=== PATIENT | female | born 1990 | race Caucasian/White ===

== ENCOUNTER 2019-06-21 22:17 | Emergency (ER) | payer MEDICAID ==
[~2019-06-21] VITALS: Ht 162.6 cm; Wt 179.0 kg
[2019-06-22 01:37] LABS: BASOPHILS % (AUTO) 0.4 % (0-1); EOSINOPHILS # (AUTO) 0.1 X10'3 (0-0.9); EOSINOPHILS % (AUTO) 0.7 % (0-6); HEMATOCRIT 33.2 % (35.0-45.0); HEMOGLOBIN 11.3 g/dl (12.0-16.0); LYMPHOCYTES # (AUTO) 2.9 X10'3 (1.1-4.8); MEAN CORPUSCULAR HEMOGLOBIN 28.1 PG (27.0-31.0); MEAN CORPUSCULAR HGB CONC 34.2 g/dL (33.0-36.5); MEAN CORPUSCULAR VOLUME 82.2 FL (78-98); MEAN PLATELET VOLUME 8.3 FL (7.4-10.4); MONOCYTES # (AUTO) 0.4 X10'3 (0-0.9); MONOCYTES % (AUTO) 4.8 % (2-12); NEUTROPHILS # (AUTO) 4.1 X10'3 (1.8-7.7); NEUTROPHILS % (AUTO) 55.1 % (42-75); PLATELET COUNT 335 X10'3 (140-440); RED BLOOD COUNT 4.04 X10'6 (4.20-5.60); RED CELL DISTRIBUTION WIDTH 14.5 % (11.5-14.5); WHITE BLOOD COUNT 7.4 X10'3 (4.5-11.0)
[2019-06-22 02:03] LABS: ALANINE AMINOTRANSFERASE 50 U/L (12-78); ALBUMIN 3.3 G/DL (3.4-5.0); ALBUMIN/GLOBULIN RATIO 0.8 (1.1-1.5); ALKALINE PHOSPHATASE 85 IU/L (46-116); ANION GAP 7 (8-16); ASPARTATE AMINO TRANSFERASE 35 U/L (10-37); BILIRUBIN,TOTAL 0.1 MG/DL (0.1-1.0); BLOOD UREA NITROGEN 15 MG/DL (7-18); BUN/CREATININE RATIO 18.5 (6.6-38.0); CHLORIDE 107 MMOL/L (99-107); CREATININE 0.81 MG/DL (0.40-0.90); GLUCOSE 122 MG/DL (70-104); MAGNESIUM 1.9 MG/DL (1.5-2.4); POTASSIUM 3.9 MMOL/L (3.5-5.1); SODIUM 141 MMOL/L (135-145); TOTAL PROTEIN 7.4 G/DL (6.4-8.2); eGFR 84 ML/MIN
[2019-06-22 02:14] VITALS: BP 141/86
== END 2019-06-22 02:16 | disposition home or self-care (01) ==
LOC: ER 22:20 → EDBD 22:20 → ER 06-22 02:16
DX: R20.2 Paresthesia of skin (principal); R60.9 Edema, unspecified; E11.9 Type 2 diabetes mellitus without complications; G89.29 Other chronic pain
CPT/HCPCS: 36415; 80053; 83735; 85025; 99283

== ENCOUNTER 2019-10-17 07:30 | Day surgery (SDC) | payer MEDICAID ==
[~2019-10-17] VITALS: Ht 162.6 cm; Wt 181.8 kg
[2019-10-17 07:42] VITALS: BP 165/108
[2019-10-17] MEDS ORDERED: DICL100G15 TOP (07:46)
[2019-10-17] MEDS ORDERED: FURO-150 PO (07:46)
[2019-10-17] MEDS ORDERED: BUSP5TAB3 PO (07:47)
[2019-10-17] MEDS ORDERED: ALPR-623 PO (07:47)
[2019-10-17] MEDS ORDERED: METF-436 PO (07:48)
[2019-10-17] MEDS ORDERED: LISI-604 PO (07:48)
[2019-10-17] MEDS ORDERED: ESCI20TA PO (07:49)
[2019-10-17] MEDS ORDERED: fentaNYL/PF 50MCG/1 ML 2ML syringe ONE (07:52)
[2019-10-17] MEDS ORDERED: MIDAZolam 5mg/5ml vial ONE (07:52)
[2019-10-17] MEDS ORDERED: LIDOcaine Viscous 15ml cup ONE (07:52)
[2019-10-17 09:38] VITALS: BP 151/101
[2019-10-17 09:48] VITALS: BP 123/76
[2019-10-17 09:58] VITALS: BP 128/82
[2019-10-17 10:08] VITALS: BP 140/88
== END 2019-10-17 10:30 | disposition home or self-care (01) ==
LOC: GI LAB 07:30
PROVIDERS: ATTEND Internal Medicine Gastroenterology
DX: Z01.818 Encounter for other preprocedural examination (principal); K21.0 Gastro-esophageal reflux disease with esophagitis; K29.50 Unspecified chronic gastritis without bleeding; E66.01 Morbid (severe) obesity due to excess calories; Z68.44 Body mass index [BMI] 60.0-69.9, adult
CPT/HCPCS: 43239; 99152; J2250; J3010; J7040; 99153; A4620

== ENCOUNTER 2019-12-02 11:02 | Inpatient (IN) | payer MEDICAID ==
[~2019-12-02] VITALS: Ht 162.6 cm; Wt 189.9 kg
[~2019-12-02 11:02] MED LIST: ALPR-623 PO; BUSP5TAB3 PO; DICL100G15 TOP; ESCI20TA PO; FURO-150 PO; LISI-604 PO; METF-436 PO
[2019-12-02 12:13] LABS: BASOPHILS % (AUTO) 0.2 % (0-1); EOSINOPHILS % (AUTO) 0.1 % (0-6); HEMOGLOBIN 12.1 g/dl (12.0-16.0); LYMPHOCYTES # (AUTO) 1.4 X10'3 (1.1-4.8); LYMPHOCYTES % (AUTO) 12.3 % (21-51); MEAN CORPUSCULAR HGB CONC 32.7 g/dL (33.0-36.5); MEAN CORPUSCULAR VOLUME 82.8 FL (78-98); MEAN PLATELET VOLUME 8.3 FL (7.4-10.4); MONOCYTES # (AUTO) 0.7 X10'3 (0-0.9); MONOCYTES % (AUTO) 5.8 % (2-12); NEUTROPHILS # (AUTO) 9.5 X10'3 (1.8-7.7); NEUTROPHILS % (AUTO) 81.6 % (42-75); PLATELET COUNT 415 X10'3 (140-440); RED BLOOD COUNT 4.47 X10'6 (4.20-5.60); RED CELL DISTRIBUTION WIDTH 15.2 % (11.5-14.5); WHITE BLOOD COUNT 11.6 X10'3 (4.5-11.0)
[2019-12-02 12:34] LABS: ALANINE AMINOTRANSFERASE 74 U/L (12-78); ALBUMIN 3.4 G/DL (3.4-5.0); ALBUMIN/GLOBULIN RATIO 0.8 (1.1-1.5); ALKALINE PHOSPHATASE 72 IU/L (46-116); ANION GAP 12 (8-16); ASPARTATE AMINO TRANSFERASE 62 U/L (10-37); BILIRUBIN,TOTAL 0.2 MG/DL (0.1-1.0); BLOOD UREA NITROGEN 15 MG/DL (7-18); BUN/CREATININE RATIO 19.7 (6.6-38.0); CALCIUM 8.6 MG/DL (8.5-10.1); CHLORIDE 104 MMOL/L (99-107); CREATININE 0.76 MG/DL (0.40-0.90); GLUCOSE 156 MG/DL (70-104); POTASSIUM 4.4 MMOL/L (3.5-5.1); SODIUM 139 MMOL/L (135-145); TOTAL CARBON DIOXIDE 23.5 MMOL/L (24-32); TOTAL PROTEIN 7.5 G/DL (6.4-8.2); eGFR 90 ML/MIN
[2019-12-02] MEDS ORDERED: morphine 4 MG/ML inj SYRINge IV STA (12:40)
--- NOTE | 2019-12-02 12:41 | NUR ---
Received a verbal order from Dr. Payne for morphine 4mg iv .Will inform primary RN.
[2019-12-02] MEDS ORDERED: iohexol 350MG/ML 100ml bottle IV ONE (12:43)
[2019-12-02 12:45] LABS: LIPASE 8124 U/L (73-393)
--- NOTE | 2019-12-02 13:09 | NUR ---
pt returns from ct
[2019-12-02] MEDS ORDERED: mag hydrox/Alum hydrox/simeth 30ml oral suspension PO PRN (14:15)
[2019-12-02] MEDS ORDERED: morphine 2 MG/ML inj. syringe IV PRN (14:15)
[2019-12-02] MEDS ORDERED: acetaminophen 325mg tablet PO PRN (14:15)
[2019-12-02] MEDS ORDERED: magnesium hydroxide 30ml (MOM) UD suspension PO PRN (14:15)
[2019-12-02 14:35] LABS: CHOL/HDL RATIO 3.4 (0.00-4.99); CHOLESTEROL 159 MG/DL (0-200); HDL CHOLESTEROL 47 MG/DL (35-60); LDL CHOLESTEROL 91 MG/DL (50-100); TRIGLYCERIDES 103 MG/DL (20-135)
--- NOTE | 2019-12-02 14:45 | NUR ---
Patient in room PCU 3016. I have received report from Faye GIORDANO and had the opportunity to ask questions and assume patient care.
--- NOTE | 2019-12-02 15:10 | NUR ---
Patient arrived to unit, oriented to room, tele started, NS@200, mrsa complete, 2 RN skin check complete.
[2019-12-02 15:15] VITALS: BP 144/80
[2019-12-02] MEDS: normal saline 1000ml 1,000 ML IV SCH ×2 (15:43→19:15)
[2019-12-02] MEDS: morphine 2 MG/ML inj. syringe IV PRN ×2 (15:50→20:20)
--- NOTE | 2019-12-02 16:21 | NUR ---
Paged Dr. Gunter. Angela Montes. [phone]. Patient has history of diabetes per ED report. Patient is not on [facility]. Would you like her on [facility]? Joe [phone]
[2019-12-02 18:00] VITALS: BP 142/63
--- NOTE | 2019-12-02 18:22 | NUR ---
Problems reprioritized. Patient report given, questions answered & plan of care reviewed with Clarissa GIORDANO.
--- NOTE | 2019-12-02 18:26 | NUR ---
Patient in room PCU 3016. I have received report from Joe GIORDANO and had the opportunity to ask questions and assume patient care.
[2019-12-02 22:00] VITALS: BP 153/85
[2019-12-02] MEDS: busPIRone 5mg tablet PO SCH (22:21)
[2019-12-02] MEDS: heparin, porcine 5000 units/ml vial SQ SCH (22:22)
[2019-12-03] VITALS (7 sets, daily range): BP systolic 126–143; BP diastolic 68–94
[2019-12-03] MEDS: morphine 2 MG/ML inj. syringe IV PRN ×2 (00:37→07:08)
[2019-12-03] MEDS ORDERED: HYDROmorphone inj. 0.5 MG/0.5 ML DISP.SYRIN IV ONE (02:55)
[2019-12-03] MEDS: normal saline 1000ml 1,000 ML IV SCH ×6 (03:05→23:50)
[2019-12-03 06:04] LABS: BASOPHILS % (AUTO) 0.2 % (0-1); EOSINOPHILS # (AUTO) 0.1 X10'3 (0-0.9); EOSINOPHILS % (AUTO) 0.7 % (0-6); HEMATOCRIT 32.6 % (35.0-45.0); HEMOGLOBIN 10.8 g/dl (12.0-16.0); LYMPHOCYTES % (AUTO) 19.4 % (21-51); MEAN CORPUSCULAR HEMOGLOBIN 27.7 PG (27.0-31.0); MONOCYTES # (AUTO) 0.5 X10'3 (0-0.9); MONOCYTES % (AUTO) 5.1 % (2-12); NEUTROPHILS # (AUTO) 7.5 X10'3 (1.8-7.7); NEUTROPHILS % (AUTO) 74.6 % (42-75); PLATELET COUNT 350 X10'3 (140-440); RED BLOOD COUNT 3.88 X10'6 (4.20-5.60); RED CELL DISTRIBUTION WIDTH 15.2 % (11.5-14.5)
--- NOTE | 2019-12-03 06:30 | NUR ---
Patient in room PCU 3016. I have received report from PASQUALE SWANN and had the opportunity to ask questions and assume patient care.
[2019-12-03 06:36] LABS: ALANINE AMINOTRANSFERASE 55 U/L (12-78); ALBUMIN/GLOBULIN RATIO 0.8 (1.1-1.5); ALKALINE PHOSPHATASE 61 IU/L (46-116); ANION GAP 8 (8-16); ASPARTATE AMINO TRANSFERASE 46 U/L (10-37); BILIRUBIN,TOTAL 0.3 MG/DL (0.1-1.0); BLOOD UREA NITROGEN 13 MG/DL (7-18); BUN/CREATININE RATIO 16.9 (6.6-38.0); CALCIUM 8.1 MG/DL (8.5-10.1); CHLORIDE 106 MMOL/L (99-107); CREATININE 0.77 MG/DL (0.40-0.90); GLUCOSE 123 MG/DL (70-104); POTASSIUM 4.1 MMOL/L (3.5-5.1); SODIUM 141 MMOL/L (135-145); TOTAL CARBON DIOXIDE 26.6 MMOL/L (24-32); TOTAL PROTEIN 6.8 G/DL (6.4-8.2); eGFR 89 ML/MIN
--- NOTE | 2019-12-03 06:52 | NUR ---
Problems reprioritized. Patient report given, questions answered & plan of care reviewed with Jovon RN.
--- NOTE | 2019-12-03 07:23 | NUR ---
PAGER ID: [phone] MESSAGE: DR. PUGA, [id number]/MAGALIE, MS 2 MG IV NOT CONTROLLING PAIN, LASTS ABOUT 1.5 HOURS.FROM 12/20 TO 10/19. GOT ONE TIME 0.5MG IV DILAUDID AT 0305, WITH 1-2/10 PAIN RELIEF AND ABLE TO SLEEP AFTER. CAN WE PLEASE HAVE PRN DILAUDID ORDER? SHAINA [phone]
[2019-12-03] MEDS ORDERED: Diclofenac Sodium (Voltaren) TOP SCH (08:00)
[2019-12-03] MEDS: busPIRone 5mg tablet PO SCH ×2 (08:56→20:44)
[2019-12-03] MEDS: ESCITALOPRAM OXALATE 5 MG TABLET PO SCH (08:57)
[2019-12-03] MEDS: lisinopril 5mg tablet PO SCH (08:58)
[2019-12-03] MEDS: heparin, porcine 5000 units/ml vial SQ SCH ×2 (09:00→20:44)
[2019-12-03] MEDS: HYDROmorphone inj. 0.5 MG/0.5 ML DISP.SYRIN IV PRN ×4 (09:08→21:36)
--- NOTE | 2019-12-03 14:48 | NUR ---
Received patient report from PCU nurse Jovon RN. Awaiting arrival to room 348B.
--- NOTE | 2019-12-03 14:49 | NUR ---
TELEPHONE REPORT TO JULIETTE RN 3 SURG. TRANSFERRING TO ROOM 344B.
--- NOTE | 2019-12-03 15:45 | NUR ---
MOVED TO ROOM 344B/SURGICAL. AMB WITH SBA.
--- NOTE | 2019-12-03 16:30 | NUR ---
paged regarding ordering hyper/hypoglycemic protocol. Awaiting call back.
--- NOTE | 2019-12-03 18:18 | NUR ---
Problems reprioritized. Patient report given, questions answered & plan of care reviewed with Emili GIORDANO.
--- NOTE | 2019-12-03 18:30 | NUR ---
Patient in room [facility] 348. I have received report from JULIETTE and had the opportunity to ask questions and assume patient care.
[2019-12-03 18:37] LABS: HEMOGLOBIN A1C 6.7 % (4.5-6.2)
[2019-12-04] MEDS: HYDROmorphone inj. 0.5 MG/0.5 ML DISP.SYRIN IV PRN ×5 (01:42→23:31)
[2019-12-04] MEDS: ondansetron/PF 4mg/2ml inj IV PRN ×2 (01:46→19:28)
[2019-12-04] MEDS: normal saline 1000ml 1,000 ML IV SCH ×3 (04:35→18:18)
[2019-12-04 05:26] LABS: BASOPHILS % (AUTO) 0.2 % (0-1); EOSINOPHILS # (AUTO) 0.2 X10'3 (0-0.9); EOSINOPHILS % (AUTO) 2.3 % (0-6); HEMATOCRIT 29.5 % (35.0-45.0); HEMOGLOBIN 9.6 g/dl (12.0-16.0); LYMPHOCYTES # (AUTO) 1.9 X10'3 (1.1-4.8); MEAN CORPUSCULAR HGB CONC 32.6 g/dL (33.0-36.5); MEAN PLATELET VOLUME 8.3 FL (7.4-10.4); MONOCYTES # (AUTO) 0.7 X10'3 (0-0.9); MONOCYTES % (AUTO) 7.1 % (2-12); NEUTROPHILS # (AUTO) 6.7 X10'3 (1.8-7.7); NEUTROPHILS % (AUTO) 70.4 % (42-75); PLATELET COUNT 303 X10'3 (140-440); RED BLOOD COUNT 3.55 X10'6 (4.20-5.60); WHITE BLOOD COUNT 9.6 X10'3 (4.5-11.0)
[2019-12-04 05:59] LABS: ALANINE AMINOTRANSFERASE 48 U/L (12-78); ALBUMIN 2.7 G/DL (3.4-5.0); ALBUMIN/GLOBULIN RATIO 0.8 (1.1-1.5); ALKALINE PHOSPHATASE 64 IU/L (46-116); ANION GAP 10 (8-16); ASPARTATE AMINO TRANSFERASE 50 U/L (10-37); BILIRUBIN,TOTAL 0.3 MG/DL (0.1-1.0); BLOOD UREA NITROGEN 7 MG/DL (7-18); BUN/CREATININE RATIO 10.3 (6.6-38.0); CHLORIDE 105 MMOL/L (99-107); CREATININE 0.68 MG/DL (0.40-0.90); GLUCOSE 105 MG/DL (70-104); POTASSIUM 3.5 MMOL/L (3.5-5.1); SODIUM 139 MMOL/L (135-145); TOTAL PROTEIN 6.2 G/DL (6.4-8.2); eGFR > 90 ML/MIN
--- NOTE | 2019-12-04 06:31 | NUR ---
Problems reprioritized. Patient report given, questions answered & plan of care reviewed with
[2019-12-04 07:30] VITALS: BP 116/72
[2019-12-04] MEDS: busPIRone 5mg tablet PO SCH ×2 (09:03→20:15)
[2019-12-04] MEDS: ESCITALOPRAM OXALATE 5 MG TABLET PO SCH (09:04)
[2019-12-04] MEDS: heparin, porcine 5000 units/ml vial SQ SCH ×2 (09:05→20:16)
[2019-12-04] MEDS: lisinopril 5mg tablet PO SCH (09:07)
[2019-12-04] MEDS ORDERED: DICL75TA5 PO (09:08)
[2019-12-04 11:18] LABS: LIPASE 1142 U/L (73-393)
[2019-12-04 11:30] VITALS: BP 127/79
--- NOTE | 2019-12-04 14:20 | NUR ---
Pt. on mensus. Addendum: 12/04/19 at 1420 by Kyra Skinner RN Amended: Links added.
--- NOTE | 2019-12-04 17:41 | NUR ---
Student documentation: I have reviewed the assessments performed and documented by Student Nurse from [facility]. Student Medication Administration: For this medication-pass time frame, all medication were reviewed, dispensed, administered and documented per hospital policy by [facility] COOPER.
--- NOTE | 2019-12-04 18:40 | NUR ---
Gave report to Pepper Pabon RN.
--- NOTE | 2019-12-04 18:45 | NUR ---
Patient in room [facility] 348. I have received report from SALVADOR GIORDANO and had the opportunity to ask questions and assume patient care.
[2019-12-04 19:48] VITALS: BP 151/75
[2019-12-04 23:54] VITALS: BP 147/83
[2019-12-05] VITALS (8 sets, daily range): BP systolic 119–141; BP diastolic 61–84
[2019-12-05] MEDS: HYDROmorphone inj. 0.5 MG/0.5 ML DISP.SYRIN IV PRN ×5 (04:00→23:16)
[2019-12-05] MEDS: normal saline 1000ml 1,000 ML IV SCH ×3 (04:02→23:17)
[2019-12-05 06:07] LABS: ALANINE AMINOTRANSFERASE 54 U/L (12-78); ALBUMIN 2.6 G/DL (3.4-5.0); ALBUMIN/GLOBULIN RATIO 0.7 (1.1-1.5); ALKALINE PHOSPHATASE 64 IU/L (46-116); ANION GAP 10 (8-16); ASPARTATE AMINO TRANSFERASE 67 U/L (10-37); BILIRUBIN,TOTAL 0.4 MG/DL (0.1-1.0); BLOOD UREA NITROGEN 8 MG/DL (7-18); BUN/CREATININE RATIO 12.3 (6.6-38.0); CALCIUM 8.2 MG/DL (8.5-10.1); CHLORIDE 106 MMOL/L (99-107); CREATININE 0.65 MG/DL (0.40-0.90); GLUCOSE 90 MG/DL (70-104); LIPASE 551 U/L (73-393); POTASSIUM 3.4 MMOL/L (3.5-5.1); SODIUM 140 MMOL/L (135-145); TOTAL CARBON DIOXIDE 24.5 MMOL/L (24-32); TOTAL PROTEIN 6.3 G/DL (6.4-8.2); eGFR > 90 ML/MIN
[2019-12-05 06:10] LABS: BASOPHILS % (AUTO) 0.3 % (0-1); EOSINOPHILS # (AUTO) 0.2 X10'3 (0-0.9); EOSINOPHILS % (AUTO) 2.6 % (0-6); HEMATOCRIT 28.2 % (35.0-45.0); HEMOGLOBIN 9.3 g/dl (12.0-16.0); LYMPHOCYTES # (AUTO) 1.9 X10'3 (1.1-4.8); LYMPHOCYTES % (AUTO) 21.3 % (21-51); MEAN CORPUSCULAR HEMOGLOBIN 27.3 PG (27.0-31.0); MEAN CORPUSCULAR HGB CONC 32.9 g/dL (33.0-36.5); MEAN CORPUSCULAR VOLUME 82.9 FL (78-98); MEAN PLATELET VOLUME 8.3 FL (7.4-10.4); MONOCYTES # (AUTO) 0.6 X10'3 (0-0.9); MONOCYTES % (AUTO) 6.2 % (2-12); NEUTROPHILS # (AUTO) 6.3 X10'3 (1.8-7.7); NEUTROPHILS % (AUTO) 69.6 % (42-75); PLATELET COUNT 299 X10'3 (140-440); RED CELL DISTRIBUTION WIDTH 14.9 % (11.5-14.5)
--- NOTE | 2019-12-05 06:25 | NUR ---
Problems reprioritized. Patient report given, questions answered & plan of care reviewed with KELLY GIORDANO.
--- NOTE | 2019-12-05 06:28 | NUR ---
Patient in room [facility] 348. I have received report from Jose GIORDANO and had the opportunity to ask questions and assume patient care.
[2019-12-05] MEDS ORDERED: metFORMIN 500mg tablet PO SCH (08:00)
[2019-12-05] MEDS: busPIRone 5mg tablet PO SCH ×2 (08:30→20:16)
[2019-12-05] MEDS: lisinopril 5mg tablet PO SCH (08:30)
[2019-12-05] MEDS: ESCITALOPRAM OXALATE 5 MG TABLET PO SCH (08:31)
[2019-12-05] MEDS: heparin, porcine 5000 units/ml vial SQ SCH ×2 (08:31→20:19)
--- NOTE | 2019-12-05 09:58 | NUR ---
PAGER ID: [phone] MESSAGE: RE: Room 348B, Angela Montes+ 3.4, replacement orders needed. Thank you, Shirlene [phone]
[2019-12-05] MEDS ORDERED: magnesium 4gm in 100ml NS 100 ML IV PRN (10:45)
[2019-12-05] MEDS ORDERED: potassium CL 10mEq/100ml bag 100 ML IV PRN (10:45)
[2019-12-05] MEDS ORDERED: potassium Cl 20 mEq SR tablet PO PRN (10:45)
[2019-12-05] MEDS ORDERED: magnesium Cl slow-release 64mg tablet PO PRN (10:45)
[2019-12-05] MEDS: potassium Cl 20 mEq SR tablet PO PRN ×3 (11:09→20:16)
[2019-12-05 11:33] LABS: MAGNESIUM 1.8 MG/DL (1.5-2.4)
--- NOTE | 2019-12-05 18:45 | NUR ---
Problems reprioritized. Patient report given, questions answered & plan of care reviewed with Jose GIORDANO.
--- NOTE | 2019-12-05 18:50 | NUR ---
Patient in room [facility] 348. I have received report from KELLY GIORDANO and had the opportunity to ask questions and assume patient care.
[2019-12-05] MEDS: ondansetron/PF 4mg/2ml inj IV PRN (18:51)
[2019-12-05] MEDS: K and/or MAG REPLACEMENT MC SCH (20:00)
[2019-12-06 00:18] VITALS: BP 142/71
[2019-12-06] MEDS: HYDROmorphone inj. 0.5 MG/0.5 ML DISP.SYRIN IV PRN ×5 (04:00→23:11)
[2019-12-06 05:44] LABS: ALANINE AMINOTRANSFERASE 74 U/L (12-78); ALBUMIN 2.5 G/DL (3.4-5.0); ALBUMIN/GLOBULIN RATIO 0.6 (1.1-1.5); ALKALINE PHOSPHATASE 83 IU/L (46-116); ANION GAP 10 (8-16); BILIRUBIN,TOTAL 0.4 MG/DL (0.1-1.0); BLOOD UREA NITROGEN 7 MG/DL (7-18); BUN/CREATININE RATIO 10.1 (6.6-38.0); CALCIUM 8.4 MG/DL (8.5-10.1); CHLORIDE 106 MMOL/L (99-107); CREATININE 0.69 MG/DL (0.40-0.90); GLUCOSE 95 MG/DL (70-104); SODIUM 140 MMOL/L (135-145); TOTAL CARBON DIOXIDE 23.9 MMOL/L (24-32); TOTAL PROTEIN 6.4 G/DL (6.4-8.2); eGFR > 90 ML/MIN
[2019-12-06 05:50] LABS: ASPARTATE AMINO TRANSFERASE 106 U/L (10-37); POTASSIUM 4.7 MMOL/L (3.5-5.1)
--- NOTE | 2019-12-06 06:34 | NUR ---
Problems reprioritized. Patient report given, questions answered & plan of care reviewed with GRAY GIORDANO.
--- NOTE | 2019-12-06 06:42 | NUR ---
Patient in room [facility] 348. I have received report from PASQUALE FARRELL and had the opportunity to ask questions and assume patient care.
[2019-12-06 06:58] LABS: BASOPHILS % (AUTO) 0.4 % (0-1); EOSINOPHILS # (AUTO) 0.2 X10'3 (0-0.9); EOSINOPHILS % (AUTO) 3.3 % (0-6); HEMOGLOBIN 8.7 g/dl (12.0-16.0); LYMPHOCYTES % (AUTO) 27.1 % (21-51); MEAN CORPUSCULAR HGB CONC 33.4 g/dL (33.0-36.5); MEAN CORPUSCULAR VOLUME 83.7 FL (78-98); MEAN PLATELET VOLUME 7.8 FL (7.4-10.4); MONOCYTES # (AUTO) 0.5 X10'3 (0-0.9); MONOCYTES % (AUTO) 6.2 % (2-12); NEUTROPHILS # (AUTO) 4.6 X10'3 (1.8-7.7); PLATELET COUNT 292 X10'3 (140-440); RED CELL DISTRIBUTION WIDTH 14.9 % (11.5-14.5); WHITE BLOOD COUNT 7.3 X10'3 (4.5-11.0)
[2019-12-06 07:00] VITALS: BP 117/78
[2019-12-06] MEDS: K and/or MAG REPLACEMENT MC SCH ×2 (08:00→20:00)
[2019-12-06] MEDS: busPIRone 5mg tablet PO SCH ×2 (08:12→19:48)
[2019-12-06] MEDS: ESCITALOPRAM OXALATE 5 MG TABLET PO SCH (08:13)
[2019-12-06] MEDS: heparin, porcine 5000 units/ml vial SQ SCH ×2 (08:14→19:51)
[2019-12-06] MEDS: lisinopril 5mg tablet PO SCH (08:14)
[2019-12-06 11:00] VITALS: BP 115/73
--- NOTE | 2019-12-06 11:39 | NUR ---
Initial: Pt admit with acute pancreatitis with unclear etiology. Pt denies EtOH per H&P and lipid panel WNL. Lipase 8124 U/L on admit, now down to 551 U/L. Pt initially NPO, now advanced to clear liquid diet. Current diet order will not meet patient's estimated nutrient needs. Pt with adequate energy stores to sustain a mild caloric deficit. Recommend advancing to low fat diet as medically indicated. Pt still with c/o abdominal pain. LBM 12/04. Limited nutrition interventions at this time given current diet order. Pt with hx T2DM, current A1c is 6.7%. Pt not on hyperglycemic protocol at this time though BG levels remain well controlled throughout LOS. Will continue to follow and make recommendations as appropriate. Recommendations: 1) Advance to low fat diet as medically indicated 2) Monitor need for ONS/additional protein for satiety with diet advancement 3) Bowel care PRN 4) Scaled weights per rx Addendum: 12/06/19 at [address] Amended: Links added.
[2019-12-06] MEDS: normal saline 1000ml 1,000 ML IV SCH ×2 (11:50→23:12)
--- NOTE | 2019-12-06 18:30 | NUR ---
Patient in room [facility] 348. I have received report from GRAY GIORDANO and had the opportunity to ask questions and assume patient care.
[2019-12-06 19:32] VITALS: BP 145/70
[2019-12-06] MEDS: HYDROcodone/acetaminophen 10/325mg tab PO PRN (21:39)
[2019-12-07 00:18] VITALS: BP 144/81
[2019-12-07] MEDS: HYDROmorphone inj. 0.5 MG/0.5 ML DISP.SYRIN IV PRN ×4 (03:12→18:33)
[2019-12-07] MEDS: HYDROcodone/acetaminophen 10/325mg tab PO PRN ×4 (04:23→21:40)
[2019-12-07 06:10] LABS: BASOPHILS % (AUTO) 0.3 % (0-1); EOSINOPHILS # (AUTO) 0.2 X10'3 (0-0.9); EOSINOPHILS % (AUTO) 3.4 % (0-6); HEMOGLOBIN 8.6 g/dl (12.0-16.0); LYMPHOCYTES # (AUTO) 1.6 X10'3 (1.1-4.8); LYMPHOCYTES % (AUTO) 23.8 % (21-51); MEAN CORPUSCULAR HEMOGLOBIN 27.5 PG (27.0-31.0); MEAN CORPUSCULAR HGB CONC 33.1 g/dL (33.0-36.5); MEAN CORPUSCULAR VOLUME 82.9 FL (78-98); MEAN PLATELET VOLUME 8.2 FL (7.4-10.4); MONOCYTES # (AUTO) 0.4 X10'3 (0-0.9); MONOCYTES % (AUTO) 5.7 % (2-12); NEUTROPHILS # (AUTO) 4.6 X10'3 (1.8-7.7); NEUTROPHILS % (AUTO) 66.8 % (42-75); PLATELET COUNT 320 X10'3 (140-440); RED BLOOD COUNT 3.14 X10'6 (4.20-5.60); RED CELL DISTRIBUTION WIDTH 14.9 % (11.5-14.5); WHITE BLOOD COUNT 6.9 X10'3 (4.5-11.0)
[2019-12-07 06:21] LABS: ALANINE AMINOTRANSFERASE 96 U/L (12-78); ALBUMIN 2.5 G/DL (3.4-5.0); ALBUMIN/GLOBULIN RATIO 0.6 (1.1-1.5); ALKALINE PHOSPHATASE 86 IU/L (46-116); ANION GAP 10 (8-16); ASPARTATE AMINO TRANSFERASE 112 U/L (10-37); BILIRUBIN,TOTAL 0.3 MG/DL (0.1-1.0); BLOOD UREA NITROGEN 5 MG/DL (7-18); BUN/CREATININE RATIO 8.9 (6.6-38.0); CALCIUM 8.4 MG/DL (8.5-10.1); CHLORIDE 106 MMOL/L (99-107); CREATININE 0.56 MG/DL (0.40-0.90); GLUCOSE 90 MG/DL (70-104); MAGNESIUM 1.8 MG/DL (1.5-2.4); POTASSIUM 3.8 MMOL/L (3.5-5.1); SODIUM 140 MMOL/L (135-145); TOTAL CARBON DIOXIDE 24.1 MMOL/L (24-32); TOTAL PROTEIN 6.4 G/DL (6.4-8.2); eGFR > 90 ML/MIN
--- NOTE | 2019-12-07 06:28 | NUR ---
Problems reprioritized. Patient report given, questions answered & plan of care reviewed with GRAY GIORDANO.
[2019-12-07 07:00] VITALS: BP 144/86
[2019-12-07] MEDS: lisinopril 5mg tablet PO SCH (07:25)
[2019-12-07] MEDS: busPIRone 5mg tablet PO SCH ×2 (07:25→21:17)
[2019-12-07] MEDS: ESCITALOPRAM OXALATE 5 MG TABLET PO SCH (07:26)
[2019-12-07] MEDS: heparin, porcine 5000 units/ml vial SQ SCH ×2 (07:26→21:17)
[2019-12-07] MEDS: K and/or MAG REPLACEMENT MC SCH ×2 (07:32→19:57)
[2019-12-07] MEDS: normal saline 1000ml 1,000 ML IV SCH ×3 (08:15→21:17)
[2019-12-07 12:56] VITALS: BP 131/70
[2019-12-07 13:05] LABS: LIPASE 599 U/L (73-393)
[2019-12-07] MEDS ORDERED: iohexol 300mg/ml 100ml inj. ONE (14:20)
--- NOTE | 2019-12-07 14:55 | NUR ---
TC from RN stating pt would like to speak with a dietitian. Pt seen at bedside, pt inquiring about nutrition therapy for pancreatitis. Patient's lipid panel is WNL and pt states she doesn't drink alcohol or follow a high fat diet. Pt provided with written and verbal pancreatitis nutrition therapy education. All of patient's questions were answered at this time. RD contact information provided. Will remain available. Addendum: 12/07/19 at [address] Amended: Links added.
[2019-12-07] MEDS ORDERED: SINCALIDE IV PRN (17:40)
[2019-12-07] MEDS ORDERED: NORMAL SALINE IV PRN (17:40)
[2019-12-07 18:00] VITALS: BP 126/63
--- NOTE | 2019-12-07 18:39 | NUR ---
Problems reprioritized. Patient report given, questions answered & plan of care reviewed with PASQUALE CARPENTER.
--- NOTE | 2019-12-07 19:09 | NUR ---
Patient in room [facility] 348. I have received report from Bill GIORDANO and had the opportunity to ask questions and assume patient care.
[2019-12-07] MEDS: diatr meglu/diatrizoate 30ml oral sol.-(3 dose) bottle PO SCH (21:00)
[2019-12-08 00:16] VITALS: BP 122/65
[2019-12-08] MEDS: HYDROmorphone inj. 0.5 MG/0.5 ML DISP.SYRIN IV PRN ×2 (00:46→09:56)
--- NOTE | 2019-12-08 06:26 | NUR ---
Problems reprioritized. Patient report given, questions answered & plan of care reviewed with DARLENE GIORDANO.
[2019-12-08 06:41] LABS: MAGNESIUM 1.6 MG/DL (1.5-2.4); POTASSIUM 3.7 MMOL/L (3.5-5.1)
[2019-12-08 07:00] VITALS: BP 159/85
[2019-12-08] MEDS: diatr meglu/diatrizoate 30ml oral sol.-(3 dose) bottle PO SCH (07:00)
[2019-12-08] MEDS: K and/or MAG REPLACEMENT MC SCH (08:00)
[2019-12-08] MEDS ORDERED: NORMAL SALINE IV ONE (08:40)
[2019-12-08] MEDS ORDERED: SINCALIDE IV ONE (08:40)
[2019-12-08] MEDS: normal saline 1000ml 1,000 ML IV SCH ×2 (10:00→18:15)
[2019-12-08] MEDS: ESCITALOPRAM OXALATE 5 MG TABLET PO SCH (10:01)
[2019-12-08] MEDS: heparin, porcine 5000 units/ml vial SQ SCH (10:02)
[2019-12-08] MEDS: busPIRone 5mg tablet PO SCH (10:02)
[2019-12-08] MEDS: lisinopril 5mg tablet PO SCH (10:02)
[2019-12-08 11:00] VITALS: BP 117/72
[2019-12-08] MEDS: HYDROcodone/acetaminophen 10/325mg tab PO PRN ×2 (12:25→17:23)
[2019-12-08] MEDS ORDERED: HYDR-4383 PO (13:15)
[2019-12-08] MEDS ORDERED: ONDA4TAB6 PO (13:17)
--- NOTE | 2019-12-08 18:31 | NUR ---
Patient in room [facility] 346. I have received report from DARLENE GIORDANO and had the opportunity to ask questions and assume patient care.
--- NOTE | 2019-12-08 18:32 | NUR ---
Patient in room [facility] 346. I have received report from Akila GIORDANO and had the opportunity to ask questions and assume patient care.
--- NOTE | 2019-12-08 18:48 | NUR ---
Problems reprioritized. Patient report given, questions answered & plan of care reviewed with PASQUALE CARPENTER AND PASQUALE HSU.
--- NOTE | 2019-12-08 18:49 | NUR ---
PATIENT STABLE AND APPROPRIATE FOR DISCHARGE, IV TAKEN OUT, EDUCATION GIVEN Addendum: 12/08/19 at 1856 by Akila Castro RN SCRIPT FOR NORCO GIVEN TO PATIENT Addendum: 12/08/19 at 1901 by Deniz Meyers RN pt stable for DC. all personal belongings are with the patient upon DC. pt wheeled out of the hospital. Patient received by their family for transfer. PT DC 1854
--- NOTE | 2019-12-08 19:16 | NUR ---
PATIENT LEFT AT 1855 AND WAS WHEELED IN A WHEELCHAIR. SHE LEFT WITH FAMILY MEMBERS WITH NO SIGN OF DISTRESS.
== END 2019-12-08 18:55 | disposition home or self-care (01) | DRG 282 ==
LOC: ER 11:02 → ED HOLD 14:15 → PCU 3S 15:20 → SUR 3N 12-03 15:48
PROVIDERS: ADMIT Family Medicine; ATTEND Family Medicine
DX: K85.90 Acute pancreatitis without necrosis or infection, unspecified (principal); E11.9 Type 2 diabetes mellitus without complications; E66.01 Morbid (severe) obesity due to excess calories; I11.0 Hypertensive heart disease with heart failure; I50.810 Right heart failure, unspecified; Z68.45 Body mass index [BMI] 70 or greater, adult
CPT/HCPCS: 36415; 74160; 74177; 76700; 76937; 78227; 80053; 80061; 82948; 83036; 83690; 83735; 84132; 85025; 87081; 99285; A9537; G0378; J1170; J1644; J2270; J2405; J2805; J7030; Q9967

== ENCOUNTER 2020-06-16 13:29 | Inpatient (IN) | payer MEDICAID ==
[~2020-06-16] VITALS: Ht 162.6 cm; Wt 187.7 kg
[~2020-06-16 13:29] MED LIST changes: -ALPR-623 PO; -DICL100G15 TOP; +HYDR-4383 PO; -LISI-604 PO; +LISI-790 PO; +ONDA4TAB6 PO
[2020-06-16] MEDS ORDERED: ketamine 10mg/ml 20ml inj 45 MG in normal saline 100ml IV soln 100 ML IV ONE (14:05)
[2020-06-16 16:12] LABS: BASOPHILS % (AUTO) 0.1 % (0-1); EOSINOPHILS # (AUTO) 0.1 X10'3 (0-0.9); EOSINOPHILS % (AUTO) 0.6 % (0-6); HEMOGLOBIN 11.1 g/dl (12.0-16.0); LYMPHOCYTES # (AUTO) 1.6 X10'3 (1.1-4.8); LYMPHOCYTES % (AUTO) 16.8 % (21-51); MEAN CORPUSCULAR HGB CONC 32.8 g/dL (33.0-36.5); MEAN CORPUSCULAR VOLUME 79.3 FL (78-98); MEAN PLATELET VOLUME 8.1 FL (7.4-10.4); MONOCYTES # (AUTO) 0.5 X10'3 (0-0.9); MONOCYTES % (AUTO) 5.1 % (2-12); NEUTROPHILS # (AUTO) 7.3 X10'3 (1.8-7.7); NEUTROPHILS % (AUTO) 77.4 % (42-75); PLATELET COUNT 320 X10'3 (140-440); RED BLOOD COUNT 4.28 X10'6 (4.20-5.60); RED CELL DISTRIBUTION WIDTH 16.1 % (11.5-14.5); WHITE BLOOD COUNT 9.4 X10'3 (4.5-11.0)
[2020-06-16 16:16] LABS: ALANINE AMINOTRANSFERASE 51 U/L (12-78); ALBUMIN 3.2 G/DL (3.4-5.0); ALBUMIN/GLOBULIN RATIO 0.8 (1.1-1.5); ALKALINE PHOSPHATASE 74 IU/L (46-116); ANION GAP 6 (8-16); ASPARTATE AMINO TRANSFERASE 40 U/L (10-37); BILIRUBIN,TOTAL 0.4 MG/DL (0.1-1.0); BLOOD UREA NITROGEN 12 MG/DL (7-18); BUN/CREATININE RATIO 13.3 (6.6-38.0); CALCIUM 8.9 MG/DL (8.5-10.1); CHLORIDE 104 MMOL/L (99-107); GLUCOSE 138 MG/DL (70-104); POTASSIUM 3.8 MMOL/L (3.5-5.1); SODIUM 139 MMOL/L (135-145); TOTAL CARBON DIOXIDE 28.8 MMOL/L (24-32); TOTAL PROTEIN 7.4 G/DL (6.4-8.2); eGFR 74 ML/MIN
[2020-06-16 16:26] LABS: LIPASE 4368 U/L (73-393)
[2020-06-16] MEDS ORDERED: normal saline 1000ML IV soln IVB ONE (16:30)
[2020-06-16] MEDS ORDERED: magnesium 2GM in 50ml NS 50 ML IV PRN (17:55)
[2020-06-16] MEDS ORDERED: magnesium hydroxide 30ml (MOM) UD suspension PO PRN (17:55)
[2020-06-16] MEDS ORDERED: potassium Cl 40MEQ/1/2NS 520ml 520 ML IV PRN ×2 (17:55)
[2020-06-16] MEDS ORDERED: mag hydrox/Alum hydrox/simeth 30ml oral suspension PO PRN (17:55)
[2020-06-16] MEDS ORDERED: acetaminophen 325mg tablet PO PRN ×2 (17:55)
[2020-06-16] MEDS ORDERED: potassium Cl 20 mEq SR tablet PO PRN ×2 (17:55)
[2020-06-16] MEDS ORDERED: magnesium Cl slow-release 64mg tablet PO PRN (17:55)
[2020-06-16] MEDS ORDERED: magnesium 4gm in 100ml NS 100 ML IV PRN (17:55)
[2020-06-16] MEDS ORDERED: CADD PCA waste documentation MC PRN (18:00)
[2020-06-16] MEDS ORDERED: naloxone 0.4 mg/ml inj IV PRN (18:00)
[2020-06-16] MEDS ORDERED: dextrose 50%-water 50ml dispensing syringe IV PRN ×2 (18:10)
[2020-06-16] MEDS ORDERED: dextrose ORAL solution 15 GM/59 ML bottle PO PRN ×2 (18:10)
[2020-06-16] MEDS ORDERED: MESSAGE TO PHARMACY PO ONE (18:10)
[2020-06-16] MEDS ORDERED: insulin Lispro (HumaLOG) vial - multi-dose SQ SCH (18:10)
[2020-06-16] MEDS ORDERED: glucagon, human recombinant 1mg kit SUBCUT PRN (18:10)
[2020-06-16 19:04] LABS: HEMOGLOBIN A1C 7.2 % (4.5-6.2)
--- NOTE | 2020-06-16 19:07 | NUR ---
Received report from PASQUALE Funes. Awaiting patient arrival to the floor.
[2020-06-16 19:22] LABS: URINE HCG NEGATIVE (NEG)
[2020-06-16 19:29] LABS: UA COLLECTION TYPE CLN CATCH MIDSTREAM
[2020-06-16 19:30] LABS: CLARITY,URINE CLEAR (Clear); COLOR,URINE YELLOW (Yellow)
[2020-06-16 19:31] LABS: GLUCOSE, URINE NEGATIVE (Neg); KETONES,URINE TRACE mg/dl (Neg); NITRITES, URINE NEGATIVE (Neg); OCCULT BLOOD,URINE TRACE-INTACT (Neg); PROTEIN,URINE NEGATIVE (Neg)
[2020-06-16 19:32] LABS: LEUKOCYTE ESTERASE ,URINE NEGATIVE (Neg); UROBILINOGEN,URINE 0.2 E.U/dL (0.2-1.0)
[2020-06-16 19:35] LABS: AMORPHOUS URATES 1+; BACTERIA,URINE FEW /HPF (Neg); MUCUS STRANDS NONE SEEN /LPF (Neg); RBC,URINE 0-2 /HPF (0-2); SQUAMOUS EPITHELIAL CELL,UR FEW /LPF (FEW); WBC,URINE 0-4 /HPF (0-4)
--- NOTE | 2020-06-16 19:50 | NUR ---
Patient arrived via gurney tot he floor, accompanied by staff. Placed in room 360B. Patient alert and oriented x4 on room air, in no apparent distress. Call light and items of frequent use within reach. Will continue to monitor.
[2020-06-16 19:55] VITALS: BP 143/83
[2020-06-16] MEDS: K and/or MAG REPLACEMENT MC SCH (20:00)
[2020-06-16] MEDS: heparin, porcine 5000 units/ml vial SQ SCH (20:00)
[2020-06-16] MEDS: HYDROmorphone/NS 1 mg/ml CADD 50 ML IV SCH ×3 (20:36→23:00)
[2020-06-16] MEDS: insulin glargine (Lantus) pen - multi-dose SQ SCH (20:46)
[2020-06-16] MEDS: normal saline 1000ml 1,000 ML IV SCH (20:47)
[2020-06-16] MEDS ORDERED: temazepam 15mg capsule PO PRN (21:00)
[2020-06-16] MEDS ORDERED: BUSP10TA3 PO (22:04)
[2020-06-16] MEDS ORDERED: ESCI-8 PO (22:04)
[2020-06-16] MEDS ORDERED: METF-950 PO (22:04)
[2020-06-16] MEDS: ondansetron/PF 4mg/2ml inj IV PRN (23:57)
[2020-06-17] VITALS: BP 148/88
[2020-06-17] MEDS: HYDROmorphone/NS 1 mg/ml CADD 50 ML IV SCH ×12 (00:53→23:00)
[2020-06-17] MEDS: nystatin 15 GM powder TP SCH ×4 (05:35→19:21)
[2020-06-17] MEDS: normal saline 1000ml 1,000 ML IV SCH ×3 (05:36→17:56)
--- NOTE | 2020-06-17 06:00 | NUR ---
Patient in room [facility] 360. I have received report from Patience GIORDANO and had the opportunity to ask questions and assume patient care.
--- NOTE | 2020-06-17 06:04 | NUR ---
Problems reprioritized. Patient report given, questions answered & plan of care reviewed with PASQUALE Aguirre and PASQUALE Hunter.
[2020-06-17 06:53] LABS: BASOPHILS % (AUTO) 0.4 % (0-1); EOSINOPHILS % (AUTO) 0.3 % (0-6); HEMOGLOBIN 11.1 g/dl (12.0-16.0); LYMPHOCYTES # (AUTO) 1.7 X10'3 (1.1-4.8); LYMPHOCYTES % (AUTO) 15.8 % (21-51); MEAN CORPUSCULAR HEMOGLOBIN 26.3 PG (27.0-31.0); MEAN CORPUSCULAR HGB CONC 32.6 g/dL (33.0-36.5); MEAN CORPUSCULAR VOLUME 80.8 FL (78-98); MEAN PLATELET VOLUME 8.4 FL (7.4-10.4); MONOCYTES # (AUTO) 0.5 X10'3 (0-0.9); MONOCYTES % (AUTO) 4.7 % (2-12); NEUTROPHILS # (AUTO) 8.4 X10'3 (1.8-7.7); NEUTROPHILS % (AUTO) 78.8 % (42-75); PLATELET COUNT 340 X10'3 (140-440); RED BLOOD COUNT 4.21 X10'6 (4.20-5.60); WHITE BLOOD COUNT 10.7 X10'3 (4.5-11.0)
[2020-06-17 07:00] VITALS: BP 163/75
[2020-06-17 07:28] LABS: ALANINE AMINOTRANSFERASE 52 U/L (12-78); ALBUMIN 3.2 G/DL (3.4-5.0); ALBUMIN/GLOBULIN RATIO 0.8 (1.1-1.5); ALKALINE PHOSPHATASE 72 IU/L (46-116); ANION GAP 8 (8-16); ASPARTATE AMINO TRANSFERASE 44 U/L (10-37); BILIRUBIN,TOTAL 0.4 MG/DL (0.1-1.0); BLOOD UREA NITROGEN 11 MG/DL (7-18); BUN/CREATININE RATIO 11.6 (6.6-38.0); CALCIUM 8.7 MG/DL (8.5-10.1); CHLORIDE 105 MMOL/L (99-107); CHOL/HDL RATIO 3.2 (0.00-4.99); CHOLESTEROL 141 MG/DL (0-200); CREATININE 0.95 MG/DL (0.40-0.90); GLUCOSE 128 MG/DL (70-104); HDL CHOLESTEROL 44 MG/DL (35-60); LDL CHOLESTEROL 77 MG/DL (50-100); POTASSIUM 4.1 MMOL/L (3.5-5.1); SODIUM 141 MMOL/L (135-145); TOTAL CARBON DIOXIDE 27.6 MMOL/L (24-32); TOTAL PROTEIN 7.4 G/DL (6.4-8.2); TRIGLYCERIDES 116 MG/DL (20-135); eGFR 69 ML/MIN
[2020-06-17] MEDS: K and/or MAG REPLACEMENT MC SCH ×2 (08:55→19:06)
[2020-06-17] MEDS: ondansetron/PF 4mg/2ml inj IV PRN ×2 (08:59→19:16)
[2020-06-17] MEDS: heparin, porcine 5000 units/ml vial SQ SCH ×2 (08:59→19:14)
[2020-06-17] MEDS: pantoprazole 40mg Tablet.DR PO SCH (08:59)
[2020-06-17] MEDS ORDERED: pneumococcal 23-VAL P-sac vacc 25 mcg/0.5ml vial IMVAC ONE (10:00)
[2020-06-17 11:00] VITALS: BP 134/80
[2020-06-17] MEDS: ESCITALOPRAM OXALATE 5 MG TABLET PO SCH (14:12)
--- NOTE | 2020-06-17 15:53 | NUR ---
Malnutrition/DM Consults "new diabetic, wt loss": Pt admit DX acute pancreatitis hx T2DM A1C 7.2 up from 6.17 November 2019 admit taking metformin since 2019 per EMR. Not new DM DX this admit. Pt hs normal strength, no edema/wounds, and -2kg wt loss past 7 months not significant w/ BMI 71. Does not meet minimum malnutrition criteria at this time. Pt lipid panel WNL and does not drink per EMR. Written DM ed w/ RD contact information left in pt chart. To provide initial assessment on above date. Addendum: 06/17/20 at [address] Amended: Links added.
[2020-06-17 18:00] VITALS: BP 148/84
--- NOTE | 2020-06-17 18:13 | NUR ---
Problems reprioritized. Patient report given, questions answered & plan of care reviewed with Jen GIORDANO.
--- NOTE | 2020-06-17 18:42 | NUR ---
I have received report from Elsa GIORDANO and had the opportunity to ask questions and assume patient care.
[2020-06-17] MEDS: busPIRone 5mg tablet PO SCH (19:14)
--- NOTE | 2020-06-17 20:00 | NUR ---
pt asked if she used a cpap for her sleep apnea. pt says she has a cpap at home but she does not use it. pt has no further needs at this time Addendum: 06/17/20 at 2316 by Jen Rojas RN *i asked the pt if she used a cpap at home
[2020-06-17] MEDS: insulin glargine (Lantus) pen - multi-dose SQ SCH (21:00)
[2020-06-17 23:59] VITALS: BP 175/82
[2020-06-18 00:12] VITALS: BP 136/94
[2020-06-18] MEDS: HYDROmorphone/NS 1 mg/ml CADD 50 ML IV SCH ×5 (01:00→09:00)
[2020-06-18] MEDS: normal saline 1000ml 1,000 ML IV SCH ×3 (02:50→22:54)
[2020-06-18] MEDS: ondansetron/PF 4mg/2ml inj IV PRN (03:42)
[2020-06-18 06:03] LABS: BASOPHILS % (AUTO) 0.4 % (0-1); EOSINOPHILS # (AUTO) 0.1 X10'3 (0-0.9); HEMATOCRIT 31.9 % (35.0-45.0); HEMOGLOBIN 10.5 g/dl (12.0-16.0); LYMPHOCYTES # (AUTO) 2.3 X10'3 (1.1-4.8); LYMPHOCYTES % (AUTO) 22.3 % (21-51); MEAN CORPUSCULAR HEMOGLOBIN 26.6 PG (27.0-31.0); MEAN CORPUSCULAR HGB CONC 32.8 g/dL (33.0-36.5); MEAN PLATELET VOLUME 8.2 FL (7.4-10.4); MONOCYTES # (AUTO) 0.6 X10'3 (0-0.9); MONOCYTES % (AUTO) 6.1 % (2-12); NEUTROPHILS # (AUTO) 7.3 X10'3 (1.8-7.7); NEUTROPHILS % (AUTO) 70.2 % (42-75); PLATELET COUNT 333 X10'3 (140-440); RED BLOOD COUNT 3.93 X10'6 (4.20-5.60); RED CELL DISTRIBUTION WIDTH 16.1 % (11.5-14.5); WHITE BLOOD COUNT 10.4 X10'3 (4.5-11.0)
--- NOTE | 2020-06-18 06:09 | NUR ---
Patient in room [facility] 360. I have received report from Jen GIORDANO and had the opportunity to ask questions and assume patient care.
[2020-06-18 06:10] LABS: ALANINE AMINOTRANSFERASE 54 U/L (12-78); ALBUMIN 3.1 G/DL (3.4-5.0); ALBUMIN/GLOBULIN RATIO 0.8 (1.1-1.5); ALKALINE PHOSPHATASE 68 IU/L (46-116); ANION GAP 9 (8-16); ASPARTATE AMINO TRANSFERASE 59 U/L (10-37); BILIRUBIN,TOTAL 0.4 MG/DL (0.1-1.0); BLOOD UREA NITROGEN 11 MG/DL (7-18); BUN/CREATININE RATIO 12.9 (6.6-38.0); CALCIUM 8.8 MG/DL (8.5-10.1); CHLORIDE 104 MMOL/L (99-107); CREATININE 0.85 MG/DL (0.40-0.90); GLUCOSE 106 MG/DL (70-104); LIPASE 579 U/L (73-393); SODIUM 141 MMOL/L (135-145); TOTAL CARBON DIOXIDE 28.5 MMOL/L (24-32); TOTAL PROTEIN 7.2 G/DL (6.4-8.2); eGFR 79 ML/MIN
--- NOTE | 2020-06-18 06:10 | NUR ---
Problems reprioritized. Patient report given, questions answered & plan of care reviewed with Elsa GIORDANO.
[2020-06-18 07:00] VITALS: BP 112/66
[2020-06-18] MEDS: K and/or MAG REPLACEMENT MC SCH ×2 (08:00→19:23)
[2020-06-18] MEDS: busPIRone 5mg tablet PO SCH ×2 (09:01→19:25)
[2020-06-18] MEDS: pantoprazole 40mg Tablet.DR PO SCH (09:01)
[2020-06-18] MEDS: ESCITALOPRAM OXALATE 5 MG TABLET PO SCH (09:01)
[2020-06-18] MEDS: heparin, porcine 5000 units/ml vial SQ SCH ×2 (09:02→19:26)
[2020-06-18] MEDS: nystatin 15 GM powder TP SCH ×3 (09:02→19:28)
--- NOTE | 2020-06-18 09:17 | NUR ---
PAGER ID: [phone] MESSAGE: Elsa Surg [phone] Re: Simon AgostoB- patient requesting something other than Zofran for Nausea.
--- NOTE | 2020-06-18 09:52 | NUR ---
PAGER ID: [phone] MESSAGE: Elsa Surg [phone] RE: Simon AgostoB- Please call regarding pain medications.
[2020-06-18 11:00] VITALS: BP 165/95
[2020-06-18] MEDS: HYDROmorphone 1 mg/ml syringe IV PRN ×3 (14:29→21:17)
[2020-06-18] MEDS: metoclopramide 5 mg/ml inj IV PRN ×2 (14:36→21:17)
--- NOTE | 2020-06-18 16:46 | NUR ---
PAGER ID: [phone] MESSAGE: [id number] RE: Simon Elena Ordered Clear liquids to start on 06/19 at breakfast. Dietary sent tray by mistake. Tolerated. Continue NPO until morning?
--- NOTE | 2020-06-18 18:04 | NUR ---
Problems reprioritized. Patient report given, questions answered & plan of care reviewed with Jen GIORDANO.
--- NOTE | 2020-06-18 18:34 | NUR ---
I have received report from Elsa GIORDANO and had the opportunity to ask questions and assume patient care.
[2020-06-18 20:00] VITALS: BP 146/85
[2020-06-18] MEDS: insulin glargine (Lantus) pen - multi-dose SQ SCH (21:00)
[2020-06-19] VITALS (13 sets, daily range): BP systolic 125–159; BP diastolic 50–93
[2020-06-19] MEDS: HYDROmorphone 1 mg/ml syringe IV PRN ×4 (00:35→10:41)
[2020-06-19] MEDS: metoclopramide 5 mg/ml inj IV PRN (03:43)
--- NOTE | 2020-06-19 06:22 | NUR ---
Problems reprioritized. Patient report given, questions answered & plan of care reviewed with Latonya GIORDANO.
[2020-06-19 07:08] LABS: BASOPHILS # (AUTO) 0.1 X10'3 (0-0.2); BASOPHILS % (AUTO) 0.7 % (0-1); EOSINOPHILS # (AUTO) 0.1 X10'3 (0-0.9); EOSINOPHILS % (AUTO) 1.4 % (0-6); HEMATOCRIT 31.4 % (35.0-45.0); HEMOGLOBIN 10.1 g/dl (12.0-16.0); LYMPHOCYTES # (AUTO) 2.4 X10'3 (1.1-4.8); LYMPHOCYTES % (AUTO) 31.7 % (21-51); MEAN CORPUSCULAR HEMOGLOBIN 26.2 PG (27.0-31.0); MEAN CORPUSCULAR HGB CONC 32.1 g/dL (33.0-36.5); MEAN CORPUSCULAR VOLUME 81.4 FL (78-98); MEAN PLATELET VOLUME 8.4 FL (7.4-10.4); MONOCYTES # (AUTO) 0.4 X10'3 (0-0.9); MONOCYTES % (AUTO) 5.9 % (2-12); NEUTROPHILS # (AUTO) 4.5 X10'3 (1.8-7.7); NEUTROPHILS % (AUTO) 60.3 % (42-75); PLATELET COUNT 302 X10'3 (140-440); RED BLOOD COUNT 3.86 X10'6 (4.20-5.60); RED CELL DISTRIBUTION WIDTH 16.2 % (11.5-14.5); WHITE BLOOD COUNT 7.5 X10'3 (4.5-11.0)
[2020-06-19] MEDS: ESCITALOPRAM OXALATE 5 MG TABLET PO SCH (07:31)
[2020-06-19] MEDS: pantoprazole 40mg Tablet.DR PO SCH (07:31)
[2020-06-19] MEDS: busPIRone 5mg tablet PO SCH ×2 (07:31→20:53)
[2020-06-19] MEDS: heparin, porcine 5000 units/ml vial SQ SCH ×2 (07:33→20:54)
[2020-06-19] MEDS: nystatin 15 GM powder TP SCH ×3 (07:40→21:02)
[2020-06-19 07:45] LABS: ALANINE AMINOTRANSFERASE 69 U/L (12-78); ALBUMIN/GLOBULIN RATIO 0.7 (1.1-1.5); ALKALINE PHOSPHATASE 71 IU/L (46-116); ANION GAP 10 (8-16); ASPARTATE AMINO TRANSFERASE 100 U/L (10-37); BILIRUBIN,TOTAL 0.4 MG/DL (0.1-1.0); BLOOD UREA NITROGEN 10 MG/DL (7-18); BUN/CREATININE RATIO 13.3 (6.6-38.0); CALCIUM 8.8 MG/DL (8.5-10.1); CHLORIDE 105 MMOL/L (99-107); CREATININE 0.75 MG/DL (0.40-0.90); GLUCOSE 100 MG/DL (70-104); LIPASE 446 U/L (73-393); SODIUM 139 MMOL/L (135-145); TOTAL CARBON DIOXIDE 23.6 MMOL/L (24-32); TOTAL PROTEIN 7.2 G/DL (6.4-8.2); eGFR > 90 ML/MIN
[2020-06-19 07:49] LABS: POTASSIUM 4.2 MMOL/L (3.5-5.1)
[2020-06-19] MEDS: K and/or MAG REPLACEMENT MC SCH ×2 (08:00→20:00)
[2020-06-19] MEDS: normal saline 1000ml 1,000 ML IV SCH ×2 (08:21→15:59)
--- NOTE | 2020-06-19 11:02 | NUR ---
DM consult: Patient's A1c has already been addressed, see below. Malnutrition/DM Consults "new diabetic, wt loss": Pt admit DX acute pancreatitis hx T2DM A1C 7.2 up from 6.17 November 2019 admit taking metformin since 2019 per EMR. Not new DM DX this admit. Pt hs normal strength, no edema/wounds, and -2kg wt loss past 7 months not significant w/ BMI 71. Does not meet minimum malnutrition criteria at this time. Pt lipid panel WNL and does not drink per EMR. Written DM ed w/ RD contact information left in pt chart. To provide initial assessment on above date. Addendum: 06/19/20 at [address] Amended: Links added.
[2020-06-19] MEDS ORDERED: ibuprofen tablet 400 MG TABLET PO ONE (11:15)
--- NOTE | 2020-06-19 17:55 | NUR ---
Paged PAGER ID: [phone] MESSAGE: [id number] Janette Montes. pt is more edematous than this morning, would you like to continue fluids or stop them? Pt states pain is not controlled with PRN Tylenol, she takes Banks at home. Thank You [phone]
[2020-06-19] MEDS: HYDROcodone/acetaminophen 5mg/325mg tablet PO PRN (18:18)
--- NOTE | 2020-06-19 18:32 | NUR ---
Problems reprioritized. Patient report given, questions answered & plan of care reviewed with PASQUALE CHEEK.
[2020-06-19] MEDS: ondansetron/PF 4mg/2ml inj IV PRN (20:52)
[2020-06-19] MEDS: insulin glargine (Lantus) pen - multi-dose SQ SCH (21:00)
[2020-06-20] MEDS: HYDROcodone/acetaminophen 5mg/325mg tablet PO PRN ×2 (00:13→06:27)
[2020-06-20 00:42] VITALS: BP 142/85
[2020-06-20 01:15] VITALS: BP 169/81
--- NOTE | 2020-06-20 01:26 | NUR ---
MESSAGE: MESSAGE: 360B Complains of chest pain , feels like pressure and stabbing,07/20, BP 169/81 HR 88, EKG done: Sinus or ectopic atrial rhythm short [place] interval. Do you want me to run down to you or ED Dr? Richard [phone] Received call back from hospitalist asking me to run it down to ED to make sure it's not a Stemi. No new orders
[2020-06-20] MEDS: metoclopramide 5 mg/ml inj IV PRN ×2 (01:45→10:06)
--- NOTE | 2020-06-20 01:52 | NUR ---
ER MD called Hospitalist regarding negative results EKG. ED Md signed the EKG, and the hospitalist did not give any new orders. I gave Maalox, as a prophylactic, and Reglan for nausea. Will continue to monitor. Patient resting in room.
--- NOTE | 2020-06-20 06:29 | NUR ---
Problems reprioritized. Patient report given, questions answered & plan of care reviewed with PASQUALE Hanks.
--- NOTE | 2020-06-20 06:32 | NUR ---
Student documentation: I have reviewed and agree with all interventions, assessments performed and documented by Zahida [facility] ROCHELLE.
[2020-06-20 06:43] LABS: BASOPHILS % (AUTO) 0.5 % (0-1); EOSINOPHILS # (AUTO) 0.1 X10'3 (0-0.9); EOSINOPHILS % (AUTO) 1.7 % (0-6); HEMATOCRIT 31.9 % (35.0-45.0); HEMOGLOBIN 10.5 g/dl (12.0-16.0); LYMPHOCYTES # (AUTO) 2.1 X10'3 (1.1-4.8); LYMPHOCYTES % (AUTO) 36.3 % (21-51); MEAN CORPUSCULAR HEMOGLOBIN 26.3 PG (27.0-31.0); MEAN CORPUSCULAR HGB CONC 32.9 g/dL (33.0-36.5); MEAN CORPUSCULAR VOLUME 79.9 FL (78-98); MEAN PLATELET VOLUME 7.9 FL (7.4-10.4); MONOCYTES # (AUTO) 0.3 X10'3 (0-0.9); MONOCYTES % (AUTO) 5.8 % (2-12); NEUTROPHILS # (AUTO) 3.2 X10'3 (1.8-7.7); NEUTROPHILS % (AUTO) 55.7 % (42-75); PLATELET COUNT 337 X10'3 (140-440); RED BLOOD COUNT 3.99 X10'6 (4.20-5.60); RED CELL DISTRIBUTION WIDTH 16.3 % (11.5-14.5); WHITE BLOOD COUNT 5.8 X10'3 (4.5-11.0)
[2020-06-20 07:09] LABS: ALANINE AMINOTRANSFERASE 78 U/L (12-78); ALBUMIN/GLOBULIN RATIO 0.8 (1.1-1.5); ALKALINE PHOSPHATASE 69 IU/L (46-116); ANION GAP 8 (8-16); ASPARTATE AMINO TRANSFERASE 96 U/L (10-37); BILIRUBIN,TOTAL 0.3 MG/DL (0.1-1.0); BLOOD UREA NITROGEN 6 MG/DL (7-18); BUN/CREATININE RATIO 8.2 (6.6-38.0); CALCIUM 8.9 MG/DL (8.5-10.1); CHLORIDE 104 MMOL/L (99-107); CREATININE 0.73 MG/DL (0.40-0.90); GLUCOSE 98 MG/DL (70-104); LIPASE 309 U/L (73-393); MAGNESIUM 1.9 MG/DL (1.5-2.4); POTASSIUM 3.3 MMOL/L (3.5-5.1); SODIUM 139 MMOL/L (135-145); TOTAL CARBON DIOXIDE 27.3 MMOL/L (24-32); eGFR > 90 ML/MIN
[2020-06-20 07:41] VITALS: BP 162/106
[2020-06-20] MEDS: busPIRone 5mg tablet PO SCH (08:00)
[2020-06-20] MEDS: ESCITALOPRAM OXALATE 5 MG TABLET PO SCH (08:00)
[2020-06-20] MEDS: K and/or MAG REPLACEMENT MC SCH (08:00)
[2020-06-20] MEDS: pantoprazole 40mg Tablet.DR PO SCH (08:00)
[2020-06-20] MEDS: heparin, porcine 5000 units/ml vial SQ SCH (08:02)
[2020-06-20] MEDS: nystatin 15 GM powder TP SCH ×2 (08:03→13:06)
[2020-06-20] MEDS ORDERED: PANT40TA54 PO (10:53)
[2020-06-20 11:00] VITALS: BP 177/75
--- NOTE | 2020-06-20 12:51 | NUR ---
PATIENT DISCHARGED Addendum: 06/20/20 at 1251 by Latonya Brumfield RN Amended: Links added.
--- NOTE | 2020-06-20 14:59 | NUR ---
PATIENT STABLE AND APPROPRIATE FOR DISCHARGE HOME. PARTNERSHIP TRANSPORTATION ARRANGED. ALL BELONGINGS TAKEN FROM ROOM, NEW MEDICATIONS CALLED INTO PHARMACY IN [place]. ALL DISCHARGE EDUCATION / INSTRUCTIONS GIVEN AND REVIEWED WITH PATIENT, ALL QUESTIONS ANSWERED. PATIENT IS AWARE OF HER NEED TO FOLLOW UP WITH PCP.
== END 2020-06-20 14:37 | disposition home or self-care (01) | DRG 282 ==
LOC: ER 13:29 → ED HOLD 17:51 → SUR 3N 19:45
PROVIDERS: ADMIT Internal Medicine; ATTEND Internal Medicine
PROC: 3E0234Z Introduction of Serum, Toxoid and Vaccine into Muscle, Percutaneous Approach (ICD-10-PCS; principal; 2020-06-17)
DX: K85.90 Acute pancreatitis without necrosis or infection, unspecified (principal); D64.9 Anemia, unspecified; E11.9 Type 2 diabetes mellitus without complications; E66.01 Morbid (severe) obesity due to excess calories; E78.5 Hyperlipidemia, unspecified; E28.2 Polycystic ovarian syndrome; F12.90 Cannabis use, unspecified, uncomplicated; G47.10 Hypersomnia, unspecified; G47.33 Obstructive sleep apnea (adult) (pediatric); G89.4 Chronic pain syndrome; K86.1 Other chronic pancreatitis; R53.82 Chronic fatigue, unspecified; F32.9 Major depressive disorder, single episode, unspecified; M25.561 Pain in right knee; M54.5 Low back pain; Z76.5 Malingerer [conscious simulation]; Z23 Encounter for immunization; Z68.45 Body mass index [BMI] 70 or greater, adult
CPT/HCPCS: 36415; 71046; 74176; 76937; 80053; 80061; 81001; 81025; 82948; 83036; 83605; 83690; 83735; 85025; 87040; 87081; 93005; 99285; G0378; J1170; J1644; J1815; J2405; J2765; J7030